=== PATIENT | female | born 1945 | race Caucasian/White ===

== ENCOUNTER 2023-12-02 06:52 | Day surgery (SDC) | payer MEDICARE, OTHER, SELFPAY ==
--- NOTE | 2023-11-23 15:13 | HPS.HSE ---
Family Physician
-
Family Physician: INTERVIEWE UNKNOWN - PT NOT
Chief Complaint
-
Paroxysmal atrial fibrillation and atrial flutter.
History of Present Illness
The patient is a 78-year-old female presenting today for paroxysmal atrial fibrillation and atrial flutter. The patient reports a wide variety of symptoms associated with these diagnoses, which include mild shortness of breath, fatigue,
and rare palpitations. She is currently on pharmacological therapy with Atenolol and Multaq. She has been compliant with Eliquis for oral anticoagulation due to a [id number] of 5. She notes that her current symptoms are greatly interfering with
her activities of daily living and are overall impacting her quality of life. She is interested in pursuing pulmonary vein isolation and atrial flutter ablation for further arrhythmia management. Prior to undergoing these procedures, she is
scheduled for a pre-procedural transesophageal echocardiogram to officially rule out a left atrial appendage thrombus. She denies any current complaints today such as chest pain and shortness of breath at rest, nausea, vomiting, diarrhea,
lightheadedness, dizziness, cough, sore throat, or fever.
Medical History
Past Medical History
Past Medical History: Reports Other
Additional Past Medical History:
1. Paroxysmal atrial fibrillation and atrial flutter, status post SAMANTHA-guided cardioversion 08/2023; pharmacological therapy with Atenolol and Multaq, oral anticoagulation with Eliquis.
2. Hypertension.
3. Hyperlipidemia.
4. Chronic dyspnea on exertion.
5. Non-insulin dependent diabetes.
6. Chronic diarrhea.
7. Osteoarthritis.
8. Uterine prolapse, status post repair.
9. Hearing impairment bilaterally.
10. Mildly elevated transaminases.
11. Mild hyperbilirubinemia.
12. Obesity, BMI 31.7.
Past Surgical History: Reports Other
Additional Past Surgical History:
1. SAMANTHA-guided cardioversion.
2. Cardiac catheterization.
3. Uterine prolapse repair.
4. D&C.
5. Cholecystectomy.
6. Colonoscopy x2.
Social History
Tobacco: Non-smoker
Alcohol: Other (Social)
Living: Alone (The patient lives in a two-story home independently. She reports that her home has a first-floor main setup.)
Family History
Family History: Not pertinent
Allergies / Home Medications
Allergy/Medication List:
Home medications:
1. Apixaban 5 mg p.o. twice a day.
2. Atenolol 25 mg p.o. daily.
3. Atorvastatin 10 mg p.o. every evening.
4. Multaq 400 mg p.o. twice a day.
5. Probiotic one capsule p.o. daily.
6. Lisinopril 40 mg p.o. daily.
7. Januvia 100 mg p.o. every evening.
Allergies: Ceftin. Levaquin.
Review of Systems
-
A 12 point ROS was completed and negative except as noted: Yes
Physical Exam
Vital Signs
Blood pressure 136/67, heart rate 47, respirations 18, pulse ox 97% on room air.
Height 5 feet 1 inch, weight 76.1 kg, BMI 31.7.
Physical Exam
General: Well Developed, Well Nourished and No Apparent Distress
HEENT: NormoCephalic, Moist mucous membranes, Atraumatic and PERRLA
Respiratory: Clear
Cardiac: Irregular Rhythm
GI: Soft, Non Tender, Non Distended and Other (Obese. )
Musculoskeletal: Normal Gait & Station
Skin: Warm and Dry
Neuro: AO x 3 and Nonfocal/grossly intact
Laboratory Results
-
DIAGNOSTIC STUDIES as of 11/18/2023: White blood cell count 7.7, hemoglobin 12.5, platelet count 173,000. PT 20.2, INR 1.74. Sodium 138, potassium 4.4, BUN 21, creatinine 1.0, glucose 94, calcium 9.5, magnesium 1.7, total bilirubin 1.7, AST 38, ALT
36, albumin 3.6. Blood type B positive.
EKG 11/18/2023: Atrial flutter with variable AV block. Nonspecific ST abnormality.
Chest CT 11/18/2023: Short segment common vestibule for the left superior and inferior pulmonary veins, fairly commonly seen and considered normal variant. Partial non-opacification of the left atrial appendage, likely related to incomplete contrast
filling; however, cannot rule out thrombus. The left atrium is otherwise well opacified.
Impression/Plan
-
IMPRESSION/PLAN:
1. Paroxysmal atrial fibrillation and atrial flutter: The patient would like to proceed with pulmonary vein isolation and atrial flutter ablation for further arrhythmia management; however, she will undergo a transesophageal echocardiogram first
with Dr. John Garcia on 12/02/2023 to officially rule out a left atrial appendage thrombus. The benefits and risks of the procedure have been explained to the patient. The patient understands these risks and wishes to proceed.
[2023-12-02 08:00] LABS: Glucose - Point of Care 92 mg/dl (70-99)
== END 2023-12-02 10:06 | disposition home or self-care (01) ==
LOC: CATH 06:52
PROVIDERS: ATTENDING PHYSICIAN Internal Medicine Cardiovascular Disease; FAMILY PHYSICIAN Internal Medicine; OTHER PHYSICIAN Internal Medicine Cardiovascular Disease
DX: I48.0 Paroxysmal atrial fibrillation (principal); I08.3 Combined rheumatic disorders of mitral, aortic and tricuspid valves; I48.92 Unspecified atrial flutter; I10 Essential (primary) hypertension; E78.5 Hyperlipidemia, unspecified; R06.09 Other forms of dyspnea; E11.9 Type 2 diabetes mellitus without complications; M19.90 Unspecified osteoarthritis, unspecified site; E66.9 Obesity, unspecified; Z68.31 Body mass index [BMI] 31.0-31.9, adult; Z79.01 Long term (current) use of anticoagulants; Z79.84 Long term (current) use of oral hypoglycemic drugs
CPT/HCPCS: 93312; 93320; 93325; 82962